=== PATIENT | female | born 1980 | race Caucasian/White ===

== ENCOUNTER 2016-10-25 13:43 | Emergency (ER) | payer OTHER ==
[~2016-10-25] VITALS: Ht 177.8 cm; Wt 81.7 kg
[~2016-10-25 13:43] MED LIST: EFFEXOR XR150 MG; METOPROLOL TART50 MG; ZOFRAN ODT4 MG SL
[2016-10-25] MEDS ORDERED: LISINOPRIL20 MG PO (13:54)
== END 2016-10-25 15:06 | disposition home or self-care (01) ==
LOC: ED 13:43
DX: G43.909 Migraine, unspecified, not intractable, without status migrainosus (principal); R11.2 Nausea with vomiting, unspecified; I10 Essential (primary) hypertension; F32.9 Major depressive disorder, single episode, unspecified; F43.10 Post-traumatic stress disorder, unspecified; Z87.891 Personal history of nicotine dependence; Z90.49 Acquired absence of other specified parts of digestive tract; Z98.51 Tubal ligation status; Z79.899 Other long term (current) drug therapy
CPT/HCPCS: 80053; 82150; 83690; 85025; 96361; 96374; 96375; 99283; J1200; J1885; J2405; J2765; J7030